=== PATIENT | male | born 1960 | race African-American/Black ===

== ENCOUNTER 2016-12-25 06:20 | Day surgery (SDC) | payer OTHER ==
[2016-12-24 09:10] VITALS: BMI 33.0
[~2016-12-25] VITALS: Ht 165.1 cm; Wt 95.6 kg
[2016-12-25] VITALS (15 sets, daily range): BP systolic 126–163; BP diastolic 61–95; PULSE 70–97; RESP 14–22; Ht 165.1 cm; Wt 95.6 kg
[2016-12-25] MEDS ORDERED: BUPIVACAINE 0.25% (MPF) 30 ML INJ ONE (06:53)
[2016-12-25] MEDS ORDERED: ROCURONIUM 50 MG INJ ONE (07:00)
[2016-12-25] MEDS ORDERED: AMLO-147 PO (07:10)
[2016-12-25] MEDS ORDERED: METF500T4 PO (07:10)
[2016-12-25] MEDS ORDERED: IBUP800T25 PO (07:10)
[2016-12-25] MEDS ORDERED: ATOR20TA38 PO (07:10)
[2016-12-25] MEDS ORDERED: ASPI-664 PO (07:10)
[2016-12-25] MEDS ORDERED: METO50TA16 PO (07:10)
--- NOTE | 2016-12-25 07:16 | HPN ---
Date/Time of Note Date/Time of Note DATE: 12/25/16 TIME: 07:16 Interval H&P Admission Note Pt. seen H&P reviewed: No system changes BAR KEMP MD Dec 25, 2016 07:16
[2016-12-25] MEDS ORDERED: SUCCINYLCHOLINE CHLORIDE 100 MG/5 ML SYG IV ONE (07:31)
[2016-12-25] MEDS ORDERED: LIDOCAINE 1% (MDV) 20 ML INJ ONE (07:31)
[2016-12-25] MEDS ORDERED: MIDAZOLAM 1 MG/ML 2 ML INJ ONE (07:31)
[2016-12-25] MEDS ORDERED: PROPOFOL 20 ML ONE (07:31)
[2016-12-25] MEDS ORDERED: PHENYLephrine (100 MCG/ML) 5ML SYG ONE (07:36)
[2016-12-25] MEDS ORDERED: CEFAZOLIN 1 GM INJ ONE (07:43)
[2016-12-25] MEDS ORDERED: FAMOTIDINE 20 MG INJ ONE (07:47)
[2016-12-25] MEDS ORDERED: ONDANSETRON 4 MG INJ ONE (07:47)
[2016-12-25] MEDS ORDERED: ROPIVACAINE 0.2% 20 ML VIAL ONE (08:07)
[2016-12-25] MEDS ORDERED: hydrALAzine 20 MG INJ ONE (08:12)
[2016-12-25] MEDS ORDERED: SUGAMMADEX SODIUM 200 MG/2 ML VIAL IV ONE (08:18)
--- NOTE | 2016-12-25 08:28 | OPR ---
Date/Time of Note Date/Time of Note DATE: 12/25/16 TIME: 08:23 Operative Report Procedure Date: Dec 25, 2016 Preoperative Diagnosis Gallstones without obstruction Postoperative Diagnosis Gallstones without obstruction Operation Performed Laparoscopic cholecystectomy Surgeon: BAR KEMP MD Anesthesia: general Anesthesiologist: DEVORAH MCCLURE DO Estimated Blood Loss: 0 - 10 ml's Specimens Gallbladder Grafts/Implants None Tubes/Drains None Complications: None Pt Condition Post Procedure: stable Disposition: PACU Indications Symptomatic cholelithiasis Operative\Procedure Findings After satisfactory general endotracheal anesthesia was achieved, the abdomen was insufflated with carbon dioxide through the umbilical Veress needle to 15 mmHg pressure. The Veress needle was removed and the umbilical incision extended to 5 mm through which a 5 mm trocar was placed. A 5 mm 0 lens was placed. Laparoscopy was unremarkable. Under direct visualization a 12 mm epigastric trocar was placed as well as 2 5 mm right lateral abdominal trochars. The dome of the gallbladder was grasped and retracted superiorly. The distal gallbladder was grasped and retracted inferolaterally. The hepatoduodenal ligament was carefully dissected. The wendy hepatis was well visualized. The cystic duct was then triply hemoclipped and divided high at the junction of the gallbladder and cystic duct. The cystic artery was identified immediately posteriorly. This was triply hemoclipped and divided between clips. The gallbladder was then dissected from below using electrocautery dissection and placed intact into an Endo Catch removed via the epigastric route. Hemostasis of the liver bed was total and irrigant returned clear. The abdomen was then desufflated and the trochars removed. The fascia of the epigastrium was closed with a single suture of 0 Vicryl. The skin punctures were infiltrated with 30 cc of 0.25% plain Marcaine. Skin was closed with anahi. Sponge and needle counts were reported as correct 2. BAR KEMP MD Dec 25, 2016 08:28
[2016-12-25] MEDS ORDERED: ONDANSETRON 4 MG INJ IV PRN ×2 (08:30→09:00)
[2016-12-25] MEDS ORDERED: morphine 2 MG INJ IV PRN (08:30)
[2016-12-25] MEDS ORDERED: OXYCODONE/ACETAMINOPHEN (5/325) TAB PO PRN ×2 (08:30)
[2016-12-25] MEDS ORDERED: FENTAnyl 50 MCG/ML VIAL IV PRN ×2 (09:00)
[2016-12-25] MEDS ORDERED: HYDROmorphONE (0.2 MG/ML) 10ML SYG IV PRN ×2 (09:00)
[2016-12-25] MEDS ORDERED: PROCHLORPERAZINE 10 MG INJ IV PRN (09:00)
[2016-12-25] MEDS ORDERED: DIPHENHYDRAMINE 50 MG INJ IV PRN (09:00)
[2016-12-25] MEDS ORDERED: MEPERIDINE 25 MG INJ IV PRN (09:00)
== END 2016-12-25 14:30 | disposition home or self-care (01) ==
LOC: SDS 06:20
PROVIDERS: ATTEND Surgery
DX: K80.10 Calculus of gallbladder with chronic cholecystitis without obstruction (principal); I10 Essential (primary) hypertension; E11.9 Type 2 diabetes mellitus without complications; E78.5 Hyperlipidemia, unspecified; E66.9 Obesity, unspecified; Z68.35 Body mass index [BMI] 35.0-35.9, adult
CPT/HCPCS: 47562; 82962; 88304; J0690; J1170; J2250; J2405; J2795; J3010; J7999; Z7512; Z7610; J0360; J2370